=== PATIENT | female | born 1990 | race Caucasian/White ===

== ENCOUNTER 2020-12-15 22:18 | Emergency (ER) | payer SELFPAY ==
[2020-12-15 22:22] VITALS: BMI 29.2
[2020-12-15 23:25] LABS: HCG,QUALITATIVE URINE Positive; URINE APPEARANCE CLEAR; URINE BILIRUBIN NEGATIVE (NEGATIVE); URINE COLOR YELLOW; URINE GLUCOSE (UA) NEGATIVE (NEGATIVE); URINE KETONE NEGATIVE (NEGATIVE); URINE LEUK ESTERASE NEGATIVE (NEGATIVE); URINE NITRITE NEGATIVE (NEGATIVE); URINE PROTEIN NEGATIVE (NEGATIVE)
[2020-12-15 23:47] LABS: BASO % 0.7 % (0-2.0); EOS % 4.2 % (0-4.5); HEMATOCRIT 39.6 % (32.4-45.2); HEMOGLOBIN 13.4 GM/dL (10.7-15.3); LYMPH % 25.4 % (8-40); MCH 29.7 pg (25.7-33.7); MCHC 33.8 g/dl (32.0-36.0); MEAN CELL VOLUME 87.9 fl (80-96); MEAN PLT VOLUME 8.5 fl (7.5-11.1); MONO % 10.5 % (3.8-10.2); NEUT % 59.2 % (42.8-82.8); PLATELET COUNT 215 10^3/uL (134-434); RBC 4.51 M/mm3 (3.60-5.2); RDW 13.5 % (11.6-15.6); WHITE BLOOD COUNT 7.8 K/mm3 (4.0-10.0)
[2020-12-16] MEDS ORDERED: SODIUM CHLORIDE 0.9% 500 ML INFUS.BAG IV ONE (00:04)
[2020-12-16 00:08] LABS: ALBUMIN 3.5 g/dl (3.4-5.0); BLOOD UREA NITROGEN 11.1 mg/dL (7-18); CALCIUM 8.3 mg/dL (8.5-10.1)
[2020-12-16 00:11] LABS: CREATININE 0.7 mg/dL (0.55-1.3)
[2020-12-16 00:13] LABS: BILIRUBIN,TOTAL 0.1 mg/dL (0.2-1)
[2020-12-16 01:27] VITALS: BP 107/86; PULSE 87
== END 2020-12-16 01:33 | disposition home or self-care (01) ==
LOC: JER 22:18
DX: O26.891 Other specified pregnancy related conditions, first trimester (principal); R10.2 Pelvic and perineal pain
CPT/HCPCS: 36415; 76801-TC; 80053; 81003; 84702; 84703; 85025; 86850; 86900; 86901; 87086; 87186; 99284-25